=== PATIENT | female | born 1980 | race Caucasian/White ===

== ENCOUNTER 2016-12-15 09:56 | Observation (INO) | payer OTHER ==
[~2016-12-15 09:56] MED LIST: ACETAMINOPHEN 160 MG/5 ML BTL PO PRN; DEXAMETHASONE SOD PHOSPHATE 10 MG/ML VIAL IV PRN; MORPHINE SULFATE 2 MG/ML DISP.SYRIN IV PRN; MORPHINE SULFATE 4 MG/ML SYRG IV PRN; ONDANSETRON HCL/PF 2 MG/ML VIAL IV PRN; PROMETHAZINE HCL 5 MG in DEXTROSE 5 % IN WATER 50 ML IV PRN; RINGERS SOLUTION,LACTATED 1,000 ML IV PRN; oxyCODONE HCL 5 MG/5 ML UDC PO PRN
[2016-12-15] MEDS ORDERED: RINGERS SOLUTION,LACTATED 1,000 ML IV ONE (10:51)
[2016-12-15] MEDS ORDERED: BUPIVACAINE HCL 50 ML VIAL IJ ONE (11:16)
[2016-12-15] MEDS: oxyCODONE HCL 5 MG/5 ML UDC PO PRN ×3 (12:57→23:10)
[2016-12-15] MEDS ORDERED: MORPHINE SULFATE 10 MG/ML SYRG IV PRN (14:25)
--- NOTE | 2016-12-15 14:38 | HP ---
Chief Complaint - Chief Complaint Date of Service: 12/15/16 Time of Service: 14:31 Chief Complaint: post T & A - pain and airway management. History of Present Illness: Bibi Sandoval is a 36 year old whitre female, with PMH of Morbid Obsity, Diabetes Mellitus type 2, Hypothryroidism, who underwent tonsillectomy and adenoidectomy this morning. She was noted to have a narrow pharyngeal cavity and also have apneic spells. Because she will be needing narcotic pain medications for her post-op pain , the surgeon felt it unsafe to send her home tonight but monitor her overnight for pain control and keep her from desaturating. - Patient's Past Medical History Patient History - Medical: Diabetes Type 2, Hypothyroidism, Migraines, Other Patient History - Cardiac/Respiratory: Asthma Patient History - Cancer: No Hx of Cancer Patient History - Surgical Procedures: , Other Patient History - Other: None LMP (Calendar): 12/08/16 - Family History Mother Family History - Medical: No pertinent hx Family History - Cardiac/Respiratory: CVA/Stroke, Hypertension, Myocardial Infarction Family History - Cancer: No pertinent family hx Father Family History - Medical: No pertinent hx Family History - Cardiac/Respiratory: CVA/Stroke, Hypertension, Myocardial Infarction Family History - Cancer: No pertinent family hx - Social History Living Situations: spouse Abuse History: No History of abuse Psych History: No pertinent hx Alcohol Use: none Drug Use: none - Immunizations Immunizations Up to Date: Yes Hx Pneumococcal Vaccination: No History of Influenza Vaccine: No Review Of Systems (GEN) - Review of Systems Generalized/Overall Review: Absent: Chills, Fever EENTM: Present: No Symptoms Reported Respiratory: Absent: Shortness of Breath Cardiac: Absent: Chest Pain Abdominal: Absent: Nausea, Vomiting Genitourinary: Absent: Urgency, Frequency Musculoskeletal: Absent: Joint Pain Immunizations: IMMUNIZATION HX Immunizations Up to Date Yes History of Influenza Vaccine No Hx Pneumococcal Vaccination No Allergies/Adverse Reactions: Allergies Allergy/AdvReac Type Severity Reaction Status Date / Time Bleach (Sodium Hypochlorite) Allergy Severe Hives Verified 12/15/16 14:39 Sulfa (Sulfonamide Allergy Severe Anaphylaxis Verified 12/15/16 14:39 Antibiotics) [Sulfa(Sulfonamide Antibiotics)] cephalexin AdvReac Vomiting Verified 12/15/16 14:39 Home Medications: HOME MEDICATIONS Insulin Glargine,Hum.rec.anlog [Lantus] 70 unit SQ BID 10/10/14 [Last Taken 14:00 20 units] Insulin Lispro [Humalog] 25 units SQ TID 10/10/14 [Last Taken 10/10/14 02:00 20 units] Fluticasone Propionate [Flonase] 2 spray NS DAILY 02/21/16 [Last Taken Unknown] Levothyroxine Sodium [Synthroid] 50 mcg PO DAILY 02/21/16 [Last Taken Unknown] metFORMIN HCL [Glucophage] 1,000 mg PO BIDWM 02/21/16 [Last Taken Unknown] Albuterol Sulfate [Proair Hfa] 2 puff IH Q6H PRN 12/14/16 [Last Taken Unknown] Blood-Glucose Meter [Blood Glucose Monitoring] 1 each MC TID 12/14/16 [Last Taken Unknown] Fenofibrate Nanocrystallized [Tricor] 145 mg PO DAILY 12/14/16 [Last Taken Unknown] L.acidoph & Paracasei,B.lactis [Probiotic] 1 each PO BID 12/14/16 [Last Taken Unknown] oxyCODONE HCL [Roxicodone solution] 5 ml PO Q4H PRN #500 udc 12/15/16 [Last Taken Unknown] Exam - Exam Vital Signs: Vital Signs - Last Taken Temp 36.8 C 12/15/16 13:20 Pulse 93 12/15/16 13:55 Resp 14 12/15/16 13:55 BP 155/95 12/15/16 13:55 Pulse Ox 93 12/15/16 13:55 Constitutional: Present: Alert, Oriented x3, Cooperative ENT Exam: Present: hearing grossly normal, pharyngeal erythema, muffled/hoarse voice Eye Exam: bilateral eye: normal inspection, PERRL, EOMI Neck: Present: supple Back Exam: Present: no CVA tenderness Breasts: Present: Exam deferred Respiratory: Present: decreased breath sounds, No rales, No wheezing Cardiovascular/Chest: Present: regular rate, rhythm, no JVD, no murmur Abdomen: Present: Normal bowel sounds, soft, nontender, nondistended Extremity: Present: no pedal edema Assessment/Plan - Assessment/Plan (1) Recurrent streptococcal tonsillitis Assessment: s/p Tonsillectomy and adenoidectomy. Problem: Acute (2) Diabetes mellitus type 2 in obese Problem: Chronic (3) Hypothyroidism Problem: Chronic Qualifiers: Hypothyroidism type: acquired Qualified Code(s): E03.9 - Hypothyroidism, unspecified (4) Morbid obesity Problem: Chronic Qualifiers: Obesity type: unspecified obesity type Qualified Code(s): E66.01 - Morbid ( severe) obesity due to excess calories
[2016-12-15] MEDS ORDERED: ALBUTEROL SULFATE 2.5 MG/0.5 ML VIAL.NEB IH PRN (15:15)
[2016-12-15] MEDS: PHENOL 180 SPRAY BTL MM PRN ×3 (16:33→20:24)
[2016-12-15] MEDS: INSULIN LISPRO 100 UNITS/ML VIAL SC SCH ×2 (17:19→20:03)
[2016-12-15] MEDS: INSULIN GLARGINE,HUM.REC.ANLOG 100 UNITS/ML VIAL SC SCH (20:03)
[2016-12-16] MEDS ORDERED: PROMETHAZINE HCL 5 MG in DEXTROSE 5 % IN WATER 50 ML IV PRN ×2 (00:06)
[2016-12-16] MEDS ORDERED: MORPHINE SULFATE 4 MG/ML SYRG IV PRN (00:06)
[2016-12-16] MEDS ORDERED: RINGERS SOLUTION,LACTATED 1,000 ML IV PRN (00:06)
[2016-12-16] MEDS ORDERED: ONDANSETRON HCL/PF 2 MG/ML VIAL IV PRN (00:06)
[2016-12-16] MEDS ORDERED: oxyCODONE HCL 5 MG/5 ML UDC PO PRN ×2 (00:09→00:10)
[2016-12-16] MEDS: PHENOL 180 SPRAY BTL MM PRN ×2 (01:35→06:19)
[2016-12-16] MEDS: ACETAMINOPHEN 160 MG/5 ML BTL PO PRN ×2 (01:35→06:15)
[2016-12-16 07:12] VITALS: BP 125/92
[2016-12-16] MEDS: INSULIN LISPRO 100 UNITS/ML VIAL SC SCH (07:23)
--- NOTE | 2016-12-16 07:57 | DS ---
(1) Recurrent streptococcal tonsillitis Problem: Acute (2) Diabetes mellitus type 2 in obese Problem: Chronic (3) Hypothyroidism Problem: Chronic Qualifiers: Hypothyroidism type: acquired Qualified Code(s): E03.9 - Hypothyroidism, unspecified (4) Morbid obesity Problem: Chronic Qualifiers: Obesity type: unspecified obesity type Qualified Code(s): E66.01 - Morbid ( severe) obesity due to excess calories Description of Stay: Bibi Sandoval is a 36 year old whitre female, with PMH of Morbid Obsity, Diabetes Mellitus type 2, Hypothryroidism, who underwent tonsillectomy and adenoidectomy on 12/15/2016. She was noted to have a narrow pharyngeal cavity and also have apneic spells. Because she needed narcotic pain medications for her post-op pain , the surgeon felt it unsafe to send her home last night. She was admitted for observation and monitored overnight for pain control and keep her from desaturating. She is stable now to be discharged. She was told to cut in half her insulin dosages while she is progressing her diet and go back to regular dose when she is back to her regular diabetic diet. Procedures Performed: see notes below - [facility] Discharge Disposition: Home self care Disposition: Home self-care Condition: Good Discharge Activity: Activity as tolerated Discharge Diet: Consistent carbs Referrals: Lala Madison MD [Primary Care Provider] - Problem Oriented Discharge Instructions to Patient/Family: Tonsillectomy and Adenoidectomy, Child, Care After, [id number] Additional Patient Instructions (free text): Follow-up with Dr. Escobar as needed. Any questions or concerns contact his office at . Follow-up appointment with Dr. Madison on December 23 at 10:00am. 5 mls of Roxicodone given at 12:55 PM; next dose available at 4:55 PM Prescriptions (Any new or edited meds): Acetaminophen [Tylenol 160 MG/5 Ml Liquid] 650 mg PO Q4H PRN #30 btl PRN Reason: Pain Insulin Glargine,Hum.rec.anlog [Lantus] 70 unit SQ BID #7 vial Insulin Lispro [Humalog] 25 units SQ TID #7 cartridge Phenol [Chloraseptic] 1 spray MM Q1H PRN #1 btl PRN Reason: Sore Throat Complete Home Medications List: Complete Home Medication List: Fluticasone Propionate [Flonase] 2 spray NS DAILY 02/21/16 Levothyroxine Sodium [Synthroid] 50 mcg PO DAILY 02/21/16 metFORMIN HCL [Glucophage] 1,000 mg PO BIDWM 02/21/16 Albuterol Sulfate [Proair Hfa] 2 puff IH Q6H PRN 12/14/16 Blood-Glucose Meter [Blood Glucose Monitoring] 1 each MC TID 12/14/16 Fenofibrate Nanocrystallized [Tricor] 145 mg PO DAILY 12/14/16 L.acidoph & Paracasei,B.lactis [Probiotic] 1 each PO BID 12/14/16 oxyCODONE HCL [Roxicodone solution] 5 ml PO Q4H PRN #500 udc 12/15/16 Acetaminophen [Tylenol 160 MG/5 Ml Liquid] 650 mg PO Q4H PRN #30 btl 12/16/16 Insulin Glargine,Hum.rec.anlog [Lantus] 70 unit SQ BID #7 vial 12/16/16 Insulin Lispro [Humalog] 25 units SQ TID #7 cartridge 12/16/16 Phenol [Chloraseptic] 1 spray MM Q1H PRN #1 btl 12/16/16
[2016-12-16] MEDS: INSULIN GLARGINE,HUM.REC.ANLOG 100 UNITS/ML VIAL SC SCH (08:55)
== END 2016-12-16 09:42 | disposition home or self-care (01) ==
LOC: AMB 09:56 → MS 14:16
PROVIDERS: ADMIT Internal Medicine; ATTEND Internal Medicine
PROC: 0CTQXZZ Resection of Adenoids, External Approach (ICD-10-PCS; 2016-12-15)
PROC: 0CBPXZZ Excision of Tonsils, External Approach (ICD-10-PCS; principal; 2016-12-15 11:25)
DX: J35.03 Chronic tonsillitis and adenoiditis (principal)
CPT/HCPCS: 42821; 96372; 96374; 96375; G0378

== ENCOUNTER 2016-12-17 08:10 | Emergency (ER) | payer OTHER ==
[2016-12-17] MEDS ORDERED: OXYMETAZOLINE HCL 150 SPRAY BTL NS ONE (08:35)
[2016-12-17] MEDS ORDERED: TETRACAINE/BENZOCAINE/BUTAMBEN 56 SPRAY BTL TP ONE ×2 (08:35→08:54)
[2016-12-17] MEDS ORDERED: OXYMETAZOLINE HCL 150 SPRAY BTL ONE (08:54)
[2016-12-17] MEDS ORDERED: PSEUDOEPHEDRINE HCL 30 MG TAB PO ONE (09:15)
--- NOTE | 2016-12-17 09:23 | ERNOTE ---
Date of Service: 12/17/16 Time Seen by Provider: 12/17/16 08:25 Stated Complaint: SOB, PT HAD TONSILS/ADENOIDS REMOVED X 2 DAYS Presenting Symptoms:: sore throat Source: patient, family Exam Limitations: no limitations Immunizations: IMMUNIZATION HX Immunizations Up to Date Yes History of Influenza Vaccine No Hx Pneumococcal Vaccination No Allergies/Adverse Reactions: Allergies Bleach (Sodium Hypochlorite) Allergy (Severe, Verified 12/17/16 08:19) Hives Sulfa (Sulfonamide Antibiotics) [Sulfa(Sulfonamide Antibiotics)] Allergy (Severe , Verified 12/17/16 08:19) Anaphylaxis cephalexin Adverse Reaction (Verified 12/17/16 08:19) Vomiting Home Medications: HOME MEDICATIONS Fluticasone Propionate [Flonase] 2 spray NS DAILY 02/21/16 [Last Taken Unknown] Levothyroxine Sodium [Synthroid] 50 mcg PO DAILY 02/21/16 [Last Taken Unknown] metFORMIN HCL [Glucophage] 1,000 mg PO BIDWM 02/21/16 [Last Taken Unknown] Albuterol Sulfate [Proair Hfa] 2 puff IH Q6H PRN 12/14/16 [Last Taken Unknown] Blood-Glucose Meter [Blood Glucose Monitoring] 1 each MC TID 12/14/16 [Last Taken Unknown] Fenofibrate Nanocrystallized [Tricor] 145 mg PO DAILY 12/14/16 [Last Taken Unknown] L.acidoph & Paracasei,B.lactis [Probiotic] 1 each PO BID 12/14/16 [Last Taken Unknown] oxyCODONE HCL [Roxicodone solution] 5 ml PO Q4H PRN #500 udc 12/15/16 [Last Taken Unknown] Acetaminophen [Tylenol 160 MG/5 Ml Liquid] 650 mg PO Q4H PRN #30 btl 12/16/16 [ Last Taken Unknown] Insulin Glargine,Hum.rec.anlog [Lantus] 70 unit SQ BID #7 vial 12/16/16 [Last Taken Unknown] Insulin Lispro [Humalog] 25 units SQ TID #7 cartridge 12/16/16 [Last Taken Unknown] Phenol [Chloraseptic] 1 spray MM Q1H PRN #1 btl 12/16/16 [Last Taken Unknown] - History of Present Ilness Narrative: History of probably ELLI, sleep study scheduled. Since tonsillectomy, feel like has trouble breathing. Nasal congestion, and throat clearing. Position doesn' t seem to make a difference. No fever. Moderate pain. Timing: constant Severity: moderate Frequency/Possible Cause: Reports: no prior episodes Modifying Factors - Improves: Reports: nothing Modifying Factors - Worsens: Reports: nothing Associated Symptoms: Reports: denies symptoms Prior Treatment: Reports: recently seen Review of Systems - Review of Systems Constitutional: Present: no symptoms reported EYE: Present: no symptoms reported ENT: Present: See HPI Respiratory: Present: no symptoms reported Cardiology: Present: no symptoms reported Gastrointestinal/Abdominal: Present: no symptoms reported Genitourinary: Present: no symptoms reported Musculoskeletal: Present: no symptoms reported Skin: Present: no symptoms reported Neurological: Present: no symptoms reported Endocrine: Present: no symptoms reported Hematologic/Lymphatic: Present: no symptoms reported Psych: Present: no symptoms reported All Other Systems: All systems neg except as marked - Patient's Past Medical History Patient History - Medical: Diabetes Type 2, Hypothyroidism, Migraines, Other Patient History - Cardiac/Respiratory: Asthma Patient History - Cancer: No Hx of Cancer Patient History - Surgical Procedures: , T & A, Other Patient History - Other: None LMP (Calendar): 12/08/16 - Family History Mother Family History - Medical: No pertinent hx Family History - Cardiac/Respiratory: CVA/Stroke, Hypertension, Myocardial Infarction Family History - Cancer: No pertinent family hx Father Family History - Medical: No pertinent hx Family History - Cardiac/Respiratory: CVA/Stroke, Hypertension, Myocardial Infarction Family History - Cancer: No pertinent family hx - Social History Living Situations: spouse Abuse History: No History of abuse Psych History: No pertinent hx Smoking Status: Never smoker Have you smoked in the past 12 months: No Alcohol Use: none Drug Use: none - Immunizations Immunizations Up to Date: Yes Hx Pneumococcal Vaccination: No History of Influenza Vaccine: No Physical Exam - Physical Exam General Appearance: Present: wd/wn, alert, no apparent distress, anxious Eye Exam: Normal inspection: bilateral, PERRL: bilateral, EOMI: bilateral Ears, Nose, Throat: Present: normal ENT inspection, hearing grossly normal, other - post op pharynx, good air movement, modest nasal congestion Neck: Present: normal inspection, lymphadenopathy (R), lymphadenopathy (L) Respiratory: Present: no respiratory distress, normal breath sounds Cardiovascular/Chest: Present: regular rate, rhythm, no murmur Gastrointestinal/Abdominal: Present: normal bowel sounds, nontender, nondistended, soft, no organomegaly Back Exam: Present: normal inspection Extremity Exam: Present: normal inspection, no edema Neurological Exam: Present: alert, oriented, no motor/sensory deficits Skin Exam: Present: normal color, warm/dry ED Progress - Vital Signs Patient's Vital Signs:: I have reviewed the patient's vital signs. Vital Signs: Vital Signs 12/17/16 12/17/16 08:16 09:00 Temperature 35.8 C L Pulse Rate 90 104 H Respiratory 16 16 Rate Blood Pressure 151/89 142/75 O2 Sat by Pulse 97 95 Oximetry - CT/Ultrasound CT/Ultrasound Narrative: patient is much much better. I have reviewed the CAT scan report, and it is consistent with normal postoperative state. - Progress/Reassessment Chief Complaint: Upper Respiratory Symptoms Progress:: Improved Departure - Departure Clinical Impression: Dyspnea Qualifiers: Dyspnea type: unspecified Qualified Code(s): R06.00 - Dyspnea, unspecified Disposition: Home self-care Condition: Good Instructions: Tonsillectomy, Adult, Care After Additional Instructions: Use sudafed (pseudoephedrine), till the medicine is gone. Use afrin twice daily for five days then stop. Use cetacaine throat spray every four hours as needed for throat pain. See your throat surgeon in 4 days.
[2016-12-17 09:39] LABS: BUN/Creatinine Ratio 18.8 (9.0-21.6)
[2016-12-17 11:24] VITALS: BP 138/72
== END 2016-12-17 12:23 | disposition home or self-care (01) ==
LOC: ER 08:10
DX: R06.00 Dyspnea, unspecified (principal); E11.9 Type 2 diabetes mellitus without complications; Z79.4 Long term (current) use of insulin; E03.9 Hypothyroidism, unspecified; J45.909 Unspecified asthma, uncomplicated; Z90.89 Acquired absence of other organs

== ENCOUNTER 2017-08-13 19:42 | Emergency (ER) | payer OTHER ==
--- NOTE | 2017-08-13 20:10 | ERNOTE ---
Abdominal HPI - General Chief Complaint: Abdominal Pain Time Seen by Provider: 08/13/17 20:01 Source: patient, RN notes reviewed Exam Limitations: no limitations - Immun/Allergies/Home Medications Immunizatons: IMMUNIZATION HX Immunizations Up to Date Yes History of Influenza Vaccine No Hx Pneumococcal Vaccination No Allergies/Adverse Reactions: Allergies Bleach (Sodium Hypochlorite) Allergy (Severe, Verified 08/13/17 19:53) Hives Sulfa (Sulfonamide Antibiotics) [Sulfa(Sulfonamide Antibiotics)] Allergy (Severe , Verified 08/13/17 19:53) Anaphylaxis cephalexin Adverse Reaction (Verified 08/13/17 19:53) Vomiting Home Medications: HOME MEDICATIONS Fluticasone Propionate [Flonase] 2 spray NS DAILY 02/21/16 [Last Taken Unknown] Levothyroxine Sodium [Synthroid] 50 mcg PO DAILY 02/21/16 [Last Taken Unknown] metFORMIN HCL [Glucophage] 1,000 mg PO BIDWM 02/21/16 [Last Taken Unknown] Albuterol Sulfate [Proair Hfa] 2 puff IH Q6H PRN 12/14/16 [Last Taken Unknown] L.acidoph,Paracasei, B.lactis [Probiotic] 1 each PO BID 12/14/16 [Last Taken Unknown] Acetaminophen [Tylenol 160 MG/5 Ml Liquid] 650 mg PO Q4H PRN #30 btl 12/16/16 [ Last Taken Unknown] Naproxen [Naprosyn] 500 mg PO BID #60 tablet 05/04/17 [Last Taken Unknown] Insulin Glargine,Hum.rec.anlog [Lantus] 45 unit SQ BID 08/13/17 [Last Taken Unknown] - History of Present Illness Narrative: Patient here [place] thinking she had a urinary tract infection, was told that she didn't have one. She returns today with lower abdominal pain that dropped her to her knees. She is being treated in [place] [facility] for an enlarged uterus, her last menstrual cycle was in June, she notes that they are irregular. Patient has diabetes, her last Hgb A1c was done in March and was 8.3, her cholesterol then had high triglycerides at 376. 22:51 Patient notes that her last Hgb A1c was 6.2 two weeks ago in [facility]. She is going up there for treatment of her diabetes. She is also being treated for an enlarged uterus in [employer] [facility] [employer]. Timing: intermittent Quality: severe, stabbing Activities at Onset: activity Modifying Factors - (Improves): Present: rest Modifying Factors - (Worsens): Present: movement Associated Symptoms: Absent: headache, back pain, chest pain, diarrhea-gross blood, diarrhea-mucous, loss of appetite, shortness of breath Review of Systems - Review of Systems Constitutional: Present: recent illness - enlarged uterus, is going to [employer] [facility] for treatment, last menses in June, they are NOT regular EYE: Present: no symptoms reported ENT: Absent: ear pain, nasal drainage, sore throat Respiratory: Absent: shortness of breath, cough, orthopnea Cardiology: Absent: chest pain, syncope Gastrointestinal/Abdominal: Present: other - constipation Genitourinary: Present: pain. Absent: dysuria Musculoskeletal: Present: muscle pain - bilateral shoulders. Absent: back pain , muscle stiffness Neurological: Absent: anxiety, depressed, emotional problems Endocrine: Present: no symptoms reported Hematologic/Lymphatic: Present: no symptoms reported Psych: Present: no symptoms reported - Patient's Past Medical History Patient History - Medical: Diabetes Type 2, Hypothyroidism, Migraines, Other Patient History - Cardiac/Respiratory: Asthma Patient History - Cancer: No Hx of Cancer Patient History - Surgical Procedures: , T & A, Other Patient History - Other: None LMP (Calendar): 07/13/17 - Family History Mother Family History - Medical: No pertinent hx Family History - Cardiac/Respiratory: CVA/Stroke, Hypertension, Myocardial Infarction Family History - Cancer: No pertinent family hx Father Family History - Medical: No pertinent hx Family History - Cardiac/Respiratory: CVA/Stroke, Hypertension, Myocardial Infarction Family History - Cancer: No pertinent family hx - Social History Living Situations: home Abuse History: No History of abuse Psych History: No pertinent hx Smoking Status: Former smoker Have you smoked in the past 12 months: No Alcohol Use: none Drug Use: none - Immunizations Immunizations Up to Date: Yes Hx Pneumococcal Vaccination: No History of Influenza Vaccine: No Physical Exam - Physical Exam General Appearance: Present: wd/wn, alert, mild distress, obese Head Exam: Present: normal inspection, no evidence of injury Eye Exam: Normal inspection: bilateral, PERRL: bilateral, EOMI: bilateral Ears, Nose, Throat: Present: normal ENT inspection Neck: Present: normal inspection, nontender Respiratory: Present: no respiratory distress, normal breath sounds, no accessory muscle use Cardiovascular/Chest: Present: regular rate, rhythm, no murmur Gastrointestinal/Abdominal: Present: normal bowel sounds, nondistended, soft, tenderness. Absent: rebound Pelvic Exam: Present: other - patient refused, requested to have done at her physician's office Back Exam: Present: normal inspection, normal range of motion Extremity Exam: Present: normal inspection, non-tender, normal range of motion Neurological Exam: Present: alert, oriented, normal mood/affect, no motor/ sensory deficits ED Progress - Results and Orders Patient's Lab Results:: I have reviewed the patient's lab results. - Vital Signs Patient's Vital Signs:: I have reviewed the patient's vital signs. Vital Signs: Vital Signs 08/13/17 19:47 Temperature 36.8 C Pulse Rate 89 Respiratory 18 Rate Blood Pressure 145/93 O2 Sat by Pulse 98 Oximetry - X-Ray X-Ray #1 X-Ray: abdomen Interpretation: Interp. by me X-ray Comments: no free air, no dilated loops of bowels, two very small air/fluid levels seen in upright in right lower quadrant, soft stool noted throughout the colon. - Progress/Reassessment Chief Complaint: Abdominal Pain Plan - Plan Plan: Hydrocodone/tylenol given to go here, patient to follow up with her primary care physician Candie Rosenberg DO tomorrow. Discussed patient's refusal to have a pelvic exam here. I did not push the issue as her exam did not have rebound, her labs were normal, no signs of an acute abdomen noted here in the ED. Counseled patient to call her doctor tomorrow. Departure Clinical Impression: Abdominal pain Qualifiers: Abdominal location: lower abdomen, unspecified Qualified Code(s): R10.30 - Lower abdominal pain, unspecified - Departure Disposition: Home self-care Condition: Good Instructions: Abdominal Pain, Adult, [id number] Referrals: Candie Rosenberg DO [Primary Care Provider] - (call tomorrow to be seen in the next 1-3 days)
[2017-08-13 20:15] LABS: Hematocrit 43.7 % (37.0-47.0); Hemoglobin 14.9 gm/dL (12.5-16.0); Mean Cell Volume 87.9 fl (78-100); Mean Corpuscular Hgb Conc 34.1 g/dl (32-36); Mean Platelet Volume 10.7 fl (6.0-9.5); Neutrophil # 6.1 K/mm3 (1.3-6.0); Neutrophil % 64.5 % (42-75.0); Platelet Count 221 K/mm3 (150-450); Red Blood Count 4.97 M/mm3 (4.2-5.4); Red Cell Distribution Width 12.8 % (11.5-14.0); White Blood Count 9.4 K/mm3 (4.0-10.5)
[2017-08-13 20:21] LABS: Urine Appearance Clear; Urine Bilirubin Negative (NEGATIVE); Urine Blood 10 /ul (NEGATIVE); Urine Color Yellow; Urine Ketone Negative (NEGATIVE); Urine Nitrite Negative (NEGATIVE); Urine Protein 100 mg/dL (NEGATIVE); Urine Urobilinogen Normal (NORMAL)
[2017-08-13 20:24] LABS: Urine Bacteria 1+; Urine RBC None Seen /hpf (0-5); Urine WBC 0-5 /hpf (0-5)
[2017-08-13 20:29] LABS: Albumin * 3.7 gm/dl (3.4-5.0); Anion Gap 13.5 mmol/L (6.8-13.8); BUN/Creatinine Ratio 20.5 (9.0-21.6); Bilirubin, Total 0.5 mg/dL (0.0-1.1); Ca. Corrected For Albumin 9.3 mg/dL (8.4-10.2); Calcium * 9.4 mg/dL (7.9-10.9); Carbon Dioxide 25.3 mmol/L (24-32.6); Potassium 3.8 mmol/L (3.4-4.6); Total Protein 7.7 gm/dL (6.2-8.2)
[2017-08-13] MEDS ORDERED: HYDROcodone/ACETAMINOPHEN 1 EACH TABLET PO ONE (22:50)
[2017-08-13] MEDS ORDERED: HYDROcodone/ACETAMINOPHEN 1 EACH TABLET ONE (22:54)
[2017-08-13 23:00] VITALS: BP 137/86
== END 2017-08-13 22:58 | disposition home or self-care (01) ==
LOC: ER 19:42
DX: R10.30 Lower abdominal pain, unspecified (principal); E11.9 Type 2 diabetes mellitus without complications; E03.9 Hypothyroidism, unspecified

== ENCOUNTER 2018-01-05 08:23 | Emergency (ER) | payer OTHER ==
[2018-01-05 08:29] VITALS: BP 142/88
--- NOTE | 2018-01-05 09:03 | ERNOTE ---
Time Seen by Provider: 01/05/18 08:47 Stated Complaint: SINUS INFECTION Immunizations: IMMUNIZATION HX Immunizations Up to Date Yes History of Influenza Vaccine No Hx Pneumococcal Vaccination No Allergies/Adverse Reactions: Allergies Bleach (Sodium Hypochlorite) Allergy (Severe, Verified 01/05/18 08:29) Hives Sulfa (Sulfonamide Antibiotics) [Sulfa(Sulfonamide Antibiotics)] Allergy (Severe , Verified 01/05/18 08:29) Anaphylaxis cephalexin Adverse Reaction (Verified 01/05/18 08:29) Vomiting Home Medications: HOME MEDICATIONS Fluticasone Propionate [Flonase] 2 spray NS DAILY 02/21/16 [Last Taken Unknown] Levothyroxine Sodium [Synthroid] 50 mcg PO DAILY 02/21/16 [Last Taken Unknown] metFORMIN HCL [Glucophage] 1,000 mg PO BIDWM 02/21/16 [Last Taken Unknown] Albuterol Sulfate [Proair Hfa] 2 puff IH Q6H PRN 12/14/16 [Last Taken Unknown] L.acidoph,Paracasei, B.lactis [Probiotic] 1 each PO BID 12/14/16 [Last Taken Unknown] Acetaminophen [Tylenol 160 MG/5 Ml Liquid] 650 mg PO Q4H PRN #30 btl 12/16/16 [ Last Taken Unknown] Naproxen [Naprosyn] 500 mg PO BID #60 tablet 05/04/17 [Last Taken Unknown] Insulin Glargine,Hum.rec.anlog [Lantus] 45 unit SQ BID 08/13/17 [Last Taken Unknown] Levofloxacin [Levaquin] 500 mg PO DAILY #10 tab 01/05/18 [Last Taken Unknown] - History of Present Ilness Narrative: Patient has had sinus infection for over three weeks. She was seen by her PCP started on augmentin without relieve, then was on zithromax about two weeks ago without relieve. She has maxiallary and frontal pressure, tooth pain, no fever, yellow drainage and just doesn't feel well Review of Systems - Review of Systems Constitutional: Present: recent illness, fever, chills EYE: Absent: vision changes ENT: Present: See HPI Respiratory: Absent: shortness of breath, cough Cardiology: Absent: chest pain Gastrointestinal/Abdominal: Absent: nausea, vomiting, abdominal pain Genitourinary: Present: no symptoms reported Musculoskeletal: Present: no symptoms reported Skin: Absent: rash Neurological: Present: headache. Absent: weakness, numbness - Patient's Past Medical History Patient History - Medical: Diabetes Type 2, Hypothyroidism, Migraines, Other Patient History - Cardiac/Respiratory: Asthma Patient History - Cancer: No Hx of Cancer Patient History - Surgical Procedures: , T & A, Other Patient History - Other: None - Family History Mother Family History - Medical: No pertinent hx Family History - Cardiac/Respiratory: CVA/Stroke, Hypertension, Myocardial Infarction Family History - Cancer: No pertinent family hx Father Family History - Medical: No pertinent hx Family History - Cardiac/Respiratory: CVA/Stroke, Hypertension, Myocardial Infarction Family History - Cancer: No pertinent family hx - Social History Living Situations: home Abuse History: No History of abuse Psych History: No pertinent hx Alcohol Use: none Drug Use: none - Immunizations Immunizations Up to Date: Yes Hx Pneumococcal Vaccination: No History of Influenza Vaccine: No Physical Exam - Physical Exam General Appearance: Present: wd/wn, alert, no apparent distress Eye Exam: Normal inspection: bilateral, PERRL: bilateral Ears, Nose, Throat: Present: normal except -, nasal congestion, normal pharynx Neck: Absent: lymphadenopathy (R), lymphadenopathy (L) Respiratory: Present: no respiratory distress, normal breath sounds, no accessory muscle use, lungs clear Cardiovascular/Chest: Present: regular rate, rhythm, no murmur Neurological Exam: Present: alert, oriented, normal mood/affect Skin Exam: Present: normal color, warm/dry ED Progress - Vital Signs Patient's Vital Signs:: I have reviewed the patient's vital signs. Vital Signs: Vital Signs 01/05/18 08:26 Temperature 36.0 C L Pulse Rate 96 Respiratory 12 Rate Blood Pressure 142/88 O2 Sat by Pulse 99 Oximetry - Progress/Reassessment Chief Complaint: Upper Respiratory Symptoms Departure Clinical Impression: Sinusitis, acute Qualifiers: Sinusitis location: maxillary Recurrence: non-recurrent Qualified Code(s): J01.00 - Acute maxillary sinusitis, unspecified - Departure Disposition: Home self-care Condition: Good Instructions: Sinusitis, Adult, [id number] Referrals: Candie Rosenberg DO [Primary Care Provider] - Prescriptions: Levofloxacin [Levaquin] 500 mg PO DAILY #10 tab
== END 2018-01-05 09:08 | disposition home or self-care (01) ==
LOC: ER 08:23
DX: J01.00 Acute maxillary sinusitis, unspecified (principal); E03.9 Hypothyroidism, unspecified; G43.909 Migraine, unspecified, not intractable, without status migrainosus; E11.9 Type 2 diabetes mellitus without complications; J45.909 Unspecified asthma, uncomplicated; Z79.4 Long term (current) use of insulin